=== PATIENT | female | born 1930 | race Caucasian/White ===

== ENCOUNTER 2018-07-05 10:39 | Outpatient (CLI) | payer OTHER | END 2018-07-05 19:09 | disposition home or self-care (01) | LOC: SCT 10:39 | PROVIDERS: ATTEND Internal Medicine | DX: I25.10 Atherosclerotic heart disease of native coronary artery without angina pectoris (principal); D71 Functional disorders of polymorphonuclear neutrophils | CPT/HCPCS: 71250-TC ==